=== PATIENT | female | born 1955 | race Caucasian/White ===

== ENCOUNTER → 2016-08-28 | Outpatient (REF) ==
[~2016-08-28] MED LIST: ALDACTONE100 MG PO; AMITRIPTYLINE H50 M1 PO; BACTRIM DS 8001 TA1 PO; CELEXA10 MG PO; ELAVIL10 MG PO; FIBERCON625 MG PO; LASIX 80MG TABL80 MG PO; METHADONE H10 MG/TAB PO; POTASSIUM20 MEQ PO; ZOCOR80 MG PO
== END ==
LOC: ZLAB.WCH 15:10
DX: Z01.89 Encounter for other specified special examinations (principal)

== ENCOUNTER → 2017-02-21 | Outpatient (CLI) | payer MEDICARE, OTHER ==
[~2017-02-21] VITALS: Ht 165.2 cm; Wt 61.6 kg
[2017-02-21 12:02] VITALS: BP 137/91; PULSE 63
[2017-02-21 13:11] VITALS: BP 121/82; PULSE 63
[2017-02-21 13:27] VITALS: BP 116/72; PULSE 59
== END ==
LOC: COL.RAD 11:14
DX: M48.06 Spinal stenosis, lumbar region (principal); M51.17 Intervertebral disc disorders with radiculopathy, lumbosacral region; M41.85 Other forms of scoliosis, thoracolumbar region; M19.90 Unspecified osteoarthritis, unspecified site
CPT/HCPCS: G9654; J2704

== ENCOUNTER 2017-04-08 21:54 | Outpatient (RCR) | payer MEDICARE, OTHER ==
[2017-04-05 10:20] VITALS: BP 113/72; PULSE 75; TEMP 97.7
[~2017-04-08] VITALS: Ht 165.1 cm; Wt 59.0 kg
[2017-04-08 12:41] VITALS: BP 146/81; PULSE 65; TEMP 98.1
[~2017-04-08 21:54] MED LIST changes: +AMITRIPTYLINE H75 M1 PO; +DORIBAX500 MG IV
[2017-04-09 06:51] VITALS: BP 120/70; PULSE 64; TEMP 98
[2017-04-09 14:28] VITALS: BP 113/75; PULSE 825; TEMP 97.8
[2017-04-09 22:26] VITALS: BP 112/72; PULSE 71; TEMP 96.9
== END 2017-05-28 08:39 | disposition home or self-care (01) ==
LOC: EUO 04-09 22:21
DX: L03.032 Cellulitis of left toe (principal)
CPT/HCPCS: C1751; C1894; J0692; J1200; J1644; J2185

== ENCOUNTER → 2017-08-26 | Outpatient (REF) | LOC: ZLAB.WCH 18:00 | DX: Z01.89 Encounter for other specified special examinations (principal) ==

== ENCOUNTER → 2018-03-13 | Outpatient (REF) | LOC: ZLAB.WCH 16:12 | DX: Z01.89 Encounter for other specified special examinations (principal) ==

== ENCOUNTER → 2020-12-28 | Outpatient (REF) | LOC: ZLAB.WCH 18:21 | DX: Z01.89 Encounter for other specified special examinations (principal) ==

== ENCOUNTER → 2022-01-02 | Outpatient (CLI) | payer MEDICARE, OTHER | LOC: COL.VAS 09:32 | DX: M79.89 Other specified soft tissue disorders (principal); R79.89 Other specified abnormal findings of blood chemistry ==